=== PATIENT | female | born 1980 | race American Indian/Alaskan Native ===

== ENCOUNTER 2016-11-02 09:08 | Outpatient (CLI) | payer OTHER ==
--- NOTE | 2016-11-02 14:38 | Ultrasound Report ---
ULTRASOUND PELVIC COMPLETE ULTRASOUND TRANSVAGINAL HISTORY: Amenorrhea, prolonged Depo-Provera therapy. TECHNIQUE: Transabdominal and transvaginal ultrasound with color and spectral doppler interrogation. The uterus is anteverted. The uterus measures 8.8 x 3.9 x 6.3 cm. An anterior fundal fibroid measures 2.8 x 2.4 x 2.7 cm. This appears to have a small submucosal component. The endometrial stripe appears atrophic measuring 4.5 mm in thickness. There is trace fluid in the lower endometrial canal and cervical canal. No cervical mass or enlargement. The right ovary measures 2.4 x 1.6 x 2.1 cm. The left ovary measures 3.0 x 1.9 x 1.8 cm. No adnexal cyst or mass. No pelvic fluid collection. IMPRESSION: Uterine fibroid as described. Endometrial atrophy is suspected. The endometrium measures 4.5 mm on transvaginal imaging. Normal ovaries.
--- NOTE | 2016-11-05 10:08 | Mammography Report ---
BONE DENSITY STUDY: Prolonged Depo-Provera administration/amenorrhea. DEFINITIONS: BMD = Bone Mineral Density T-score = BMD related to mean peak bone mass of young adult (mean expressed in Standard Deviation) Z-score = Age matched BMD expressed in SD World Health Organization (WHO) Diagnostic Criteria Normal T-score > -1 SD Osteopenia T-score between -1 and -2.4 SD Osteoporosis T-score -2.5 SD or below FINDINGS: The weighted average BMD of lumbar spine L1-L4 is 0.817 with a T-score of -2.1. The weighted average BMD of the left hip is 0.767 with a T-score of -1.4. IMPRESSION: The patient's average T-score is diagnostic for osteopenia and average relative risk for fracture. NOTE: BMD is not the only risk factor for fracture; also consider factors such as the patient's age, risk of falling, previous osteoporotic fracture, family history of osteoporotic fractures, current smoker, and low body weight. Odell's triangle is a region of interest in femur, predominantly of trabecular bone. It is not a true anatomic site, and [facility] does not recommend its use clinically.
== END 2016-11-02 09:09 | disposition home or self-care (01) ==
LOC: US 09:08
PROVIDERS: ATTEND Obstetrics & Gynecology
DX: M85.88 Other specified disorders of bone density and structure, other site (principal); D25.0 Submucous leiomyoma of uterus
CPT/HCPCS: 76830; 76856; 77080